=== PATIENT | male | born 1970 | race Caucasian/White ===

== ENCOUNTER 2018-07-24 23:33 | Observation (INO) | payer OTHER ==
[2018-07-24] MEDS ORDERED: NS 1,000 ML IV ONE (23:46)
--- NOTE | 2018-07-24 23:50 | EDPHY ---
H & P Stated Complaint: Abd pain x2 days, Time Seen by Provider: 07/24/18 23:42 HPI/ROS: CHIEF COMPLAINT: Lower abdominal pain x2 days HISTORY OF PRESENT ILLNESS: 47-year-old male generally healthy, no history of abdominal surgeries, complaining of lower abdominal pain and periumbilical pain for the past 2 days. Mild nausea. No vomiting. No appetite . Bowel movements normal. No diarrhea. No constipation. No testicular pain. No fever or chills. No flu-like symptoms. Last oral intake 230 p.m. Today PRIMARY CARE PROVIDER: REVIEW OF SYSTEMS: 10 systems reviewed and negative with the exception of the elements mentioned in the history of present illness PAST MEDICAL & SURGICAL HISTORY: No pertinent medical or surgical history SOCIAL HISTORY: nonsmoker PHYSICAL EXAM (Prior to examination, patient consented to physical exam, hands were washed and my usual and customary physical exam procedures followed) 1) GENERAL: Well-developed, well-nourished, alert and oriented. Appears to be in no acute distress. 2) HEAD: Normocephalic, atraumatic 3) HEENT: Pupils equal, round, reactive to light bilaterally. Sclera anicteric. Nasopharynx, oropharynx, clear, no lesions. Dry mucous membranes. 4) NECK: Full range of motion, no meningeal signs. 5) LUNGS: Clear auscultation bilaterally, no wheezes, no rhonchi, no retractions. 6) HEART: Regular rate and rhythm, no murmur, no heave, no gallop. 7) ABDOMEN: No guarding, tender to palpation right lower quadrant, negative Solano's, negative Rovsing's, negative peritoneal sign, 8) MUSCULOSKELETAL: Moving all extremities, no focal areas of tenderness, no obvious trauma. No peripheral edema or discoloration. 9) BACK: No CVA tenderness, no midline vertebral tenderness, no fluctuance, no step-off, no obvious trauma, no visual or palpable abnormality. 10) SKIN: No rash, no petechiae. 11) Psychiatric: Patient is oriented X 3, there is no agitation. DIFFERENTIAL DIAGNOSIS: My differential diagnosis includes, but is not limited to, acute appendicitis, acute cholecystitis, bowel obstruction, acute pancreatitis, gastritis and urinary tract infection. The patient understands that this diagnosis is provisional and can never be 100% accurate. This is a partial list of diagnoses considered. These considerations are based on history , physical exam, past history and reassessment. - Personal History Current Tetanus Diphtheria and Acellular Pertussis (TDAP): No - Medical/Surgical History Hx Asthma: No Hx Chronic Respiratory Disease: No Hx Diabetes: No Hx Cardiac Disease: No Hx Renal Disease: No Hx Cirrhosis: No Hx Alcoholism: No Hx HIV/AIDS: No Hx Splenectomy or Spleen Trauma: No Other PMH: denies - Social History Smoking Status: Never smoked Constitutional: Initial Vital Signs Temperature (C) 36.7 C 07/24/18 23:37 Heart Rate 75 07/24/18 23:37 Respiratory Rate 17 07/24/18 23:37 Blood Pressure 153/96 H 07/24/18 23:37 O2 Sat (%) 98 07/24/18 23:37 O2 Delivery Mode Room Air Allergies/Adverse Reactions: Penicillins Allergy (Verified 07/24/18 23:39) Home Medications: Medication Instructions Recorded NK [No Known Home Meds] 07/24/18 Medical Decision Making - Diagnostics Imaging Results: Imaging Impressions Abdomen CT 07/25/18 00:02 Impression: Features consistent with acute appendicitis. Findings were discussed with Torri Herrera PA-C at 0:25, on 07/25/2018. Images reviewed myself ED Course/Re-evaluation: 11:49 p.m.: Patient has lower abdominal pain. Will obtain i-STAT creatinine, plan on CT imaging the abdomen and pelvis. He remains NPO since 2:30 p.m. Today. Care of patient under supervision of secondary supervising physician Dr Nelson with whom I discussed case. 12:25 a.m.: Staff Radiology interpretation is positive for appendicitis without perforation. Images reviewed myself 12:30 a.m.: Consultation Dr. Dharmesh Saldivar will plan taking the patient to the operating room. Ceftriaxone and Flagyl will be administered. He has a listed penicillin allergy which he states is from childhood. - Data Points Laboratory Results: Laboratory Results 07/25/18 00:00 07/25/18 07/25/18 07/25/18 00:01 00:00 00:00 WBC 17.73 10^3/uL H 10^3/uL (3.80-9.50) RBC 5.17 10^6/uL 10^6/uL (4.40-6.38) Hgb 16.1 g/dL g/dL (13.7-17.5) POC Hgb 16.7 gm/dL gm/dL (13.7-17.5) Hct 45.8 % % (40.0-51.0) POC Hct 49 % % (40-51) MCV 88.6 fL fL (81.5-99.8) MCH 31.1 pg pg (27.9-34.1) MCHC 35.2 g/dL g/dL (32.4-36.7) RDW 12.6 % % (11.5-15.2) Plt Count 191 10^3/uL 10^3/uL (150-400) MPV 11.3 fL fL (8.7-11.7) Neut % (Auto) 86.6 % H % (39.3-74.2) Lymph % (Auto) 8.9 % L % (15.0-45.0) [place] % (Auto) 3.7 % L % (4.5-13.0) Eos % (Auto) 0.2 % L % (0.6-7.6) Baso % (Auto) 0.2 % L % (0.3-1.7) Nucleat RBC Rel Count 0.0 % % (0.0-0.2) Absolute Neuts (auto) 15.34 10^3/uL H 10^3/uL (1.70-6.50) Absolute Lymphs (auto) 1.58 10^3/uL 10^3/uL (1.00-3.00) Absolute Monos (auto) 0.66 10^3/uL 10^3/uL (0.30-0.80) Absolute Eos (auto) 0.04 10^3/uL 10^3/uL (0.03-0.40) Absolute Basos (auto) 0.04 10^3/uL 10^3/uL (0.02-0.10) Absolute Nucleated RBC 0.00 10^3/uL 10^3/uL (0-0.01) Immature Gran % 0.4 % % (0.0-1.1) Immature Gran # 0.07 10^3/uL 10^3/uL (0.00-0.10) POC Sodium 141 mEq/L mEq/L (135-145) Sodium Pending POC Potassium 3.7 mEq/L mEq/L (3.3-5.0) Potassium Pending POC Chloride 102 mEq/L mEq/L (97-110) Chloride Pending Carbon Dioxide Pending Anion Gap Pending POC BUN 17 mg/dL mg/dL (7-23) BUN Pending Creatinine Pending POC Creatinine 1.0 mg/dL mg/dL (0.7-1.3) Estimated GFR Pending Glucose Pending POC Glucose 131 mg/dL H mg/dL (70-100) Calcium Pending Total Bilirubin Pending Conjugated Bilirubin Pending Unconjugated Bilirubin Pending AST Pending ALT Pending Alkaline Phosphatase Pending Total Protein Pending Albumin Pending Lipase Pending Medications Given: Discontinued Medications Sodium Chloride (Ns) 1,000 mls @ 0 mls/hr IV EDNOW ONE; Wide Open PRN Reason: Protocol Stop: 07/24/18 23:47 Last Admin: 07/24/18 23:53 Dose: 1,000 mls Point of Care Test Results: Chemistry 07/25/18 00:01 POC Sodium 141 mEq/L mEq/L (135-145) POC Potassium 3.7 mEq/L mEq/L (3.3-5.0) POC Chloride 102 mEq/L mEq/L (97-110) POC BUN 17 mg/dL mg/dL (7-23) POC Creatinine 1.0 mg/dL mg/dL (0.7-1.3) POC Glucose 131 mg/dL H mg/dL (70-100) ISTAT H&H 07/25/18 00:01 POC Hgb 16.7 gm/dL gm/dL (13.7-17.5) POC Hct 49 % % (40-51) Departure - Departure Disposition: [facility] Inpatient Acute Clinical Impression: Acute appendicitis Qualifiers: Acute appendicitis type: with localized peritonitis Appendicitis gangrene presence: without gangrene Appendicitis perforation presence: without perforation Appendicitis abscess presence: without abscess Qualified Code(s): K35.30 - Acute appendicitis with localized peritonitis, without perforation or gangrene Condition: Fair Referrals: NONE *PRIMARY CARE P,. [Primary Care Provider] - As per Instructions
[2018-07-25] MEDS ORDERED: IOPAMIDOL (ISOVUE-300) 100 ML BTL ONE (00:03)
[2018-07-25 00:04] LABS: PLATELET COUNT 191 10^3/uL (150-400)
[2018-07-25] MEDS ORDERED: KETOROLAC 15 MG/1 ML SDV IVP ONE (00:58)
[2018-07-25] MEDS ORDERED: MIDAZOLAM 2 MG/2 ML VIAL IVP ONE (01:17)
--- NOTE | 2018-07-25 01:17 | PDANEPAE ---
ANE History of Present Illness Laparoscopic appendectomy ANE Past Medical History - Pulmonary History Hx Oxygen in Use at Home: No - Endocrine History Hx Diabetes: No ANE Review of Systems Review of systems is: negative Review of Systems: - Exercise capacity Exercise capacity: >=4 METS ANE Patient History - Allergies Allergies/Adverse Reactions: Penicillins Allergy (Verified 07/24/18 23:39) - Home Medications Home medications: home medication list seen and reviewed Home Medications: NK [No Known Home Meds] 07/24/18 [Last Taken Unknown] - NPO status NPO Since - Liquids (Date): 07/24/18 NPO Since - Liquids (Time): 20:00 NPO Since - Solids (Date): 07/24/18 NPO Since - Solids (Time): 20:00 - Anes Hx Anes Hx: post operative nausea - Smoking Hx Smoking Status: Never smoked - Family Anes Hx Family Anes Hx: none ANE Labs/Vital Signs - Labs Result Diagrams: 07/25/18 00:00 07/25/18 00:00 - Vital Signs Vital Signs: reviewed preoperatively; see RN documention for details Blood Pressure: 163/100 Heart Rate: 88 Respiratory Rate: 20 O2 Sat (%): 96 Height: 175.26 cm Weight: 86.183 kg ANE Physical Exam - Airway Neck exam: FROM Mallampati Score: Class 1 Mouth exam: normal dental/mouth exam - Pulmonary Pulmonary: no respiratory distress - Cardiovascular Cardiovascular: regular rate and rhythym - ASA Status ASA Status: I, E ANE Anesthesia Plan Anesthesia Plan: general endotracheal anesthesia (RSI)
[2018-07-25] MEDS ORDERED: BUPIVACAINE 0.5% 30 ML SDV ONE (01:21)
[2018-07-25] MEDS ORDERED: ONDANSETRON 4 MG/2 ML VIAL ONE (01:24)
[2018-07-25] MEDS ORDERED: LIDOCAINE 2% 100 MG/5 ML SYR ONE (01:24)
[2018-07-25] MEDS ORDERED: SUGAMMADEX SODIUM 200 MG/2 ML VIAL IVP ONE (01:24)
[2018-07-25] MEDS ORDERED: ROCURONIUM 50 MG/5 ML VIAL ONE (01:24)
[2018-07-25] MEDS ORDERED: DEXAMETHASONE 4 MG/ML VIAL ONE (01:24)
[2018-07-25] MEDS ORDERED: fentaNYL 250 MCG/5 ML INJ ONE (01:24)
[2018-07-25] MEDS ORDERED: PROPOFOL 200 MG/20 ML VIAL ONE (01:25)
[2018-07-25] MEDS ORDERED: MIDAZOLAM 2 MG/2 ML VIAL ONE (01:40)
[2018-07-25] MEDS ORDERED: DEXAMETHASONE 4 MG/ML VIAL IVP PRN (01:49)
[2018-07-25] MEDS ORDERED: fentaNYL 100 MCG/2 ML INJ IVP PRN (01:49)
[2018-07-25] MEDS ORDERED: HYDROmorphONE/DILAUDID 2 MG/ML INJ IVP PRN (01:49)
[2018-07-25] MEDS ORDERED: HYDROCODONE/APAP 5/325 TAB PO PRN (01:49)
[2018-07-25] MEDS ORDERED: ONDANSETRON 4 MG/2 ML VIAL IVP PRN ×2 (01:49→02:47)
[2018-07-25] MEDS ORDERED: PROMETHAZINE HCL 25 MG/ML INJ IVP PRN (01:49)
[2018-07-25] MEDS ORDERED: oxyCODONE IR 5 MG TAB PO PRN (01:49)
[2018-07-25] MEDS ORDERED: LABETALOL HCL 5 MG/ML 20 ML MDV IVP PRN (01:49)
[2018-07-25] MEDS ORDERED: NALOXONE HCL 0.4 MG/ML INJ IVP PRN (01:49)
[2018-07-25] MEDS ORDERED: MEPERIDINE 25 MG/0.5 ML AMP IVP PRN (01:49)
--- NOTE | 2018-07-25 01:49 | POSTANESTH ---
Post Anesthetic Evaluation Cardiovascular Status: Normal, Stable, Similar to Pre-Op Cond Respiratory Status: Normal, Stable, Similar to Pre-op Cond. Level of Consciousness/Mental Status: Can Participate in Eval, Mildly Sleepy, Arousable Pain Control: Adequate, Prn Tx Ordered Nausea/Vomiting Control: Adequate, Prn Tx Ordered Complications Possibly Related to Anesthesia: None Noted
[2018-07-25] MEDS ORDERED: ceFAZolin 1 GM/5 ML SYR ONE (01:54)
[2018-07-25] MEDS ORDERED: HEPARIN 1000 UNIT/1 ML MDV ONE (01:54)
--- NOTE | 2018-07-25 02:42 | PDGENHP ---
History & Physical Chief Complaint: ABD PAIN History of Present Illness: PROGRESSIVE ABD PAIN FOR 18 HRS LOCALIZED TO RLQ. WBC ELEVATED. CT + FOR ACUTE APPE. RISKS AND OPTIONS FULLY DISCUSSED Pertinent Past, Social, Family History: PMH: NEGATIVE, NO SURGERY. MEDS NONE. NKA. ROS -10 PT REVIEW. SOC HX: NONSMOKER, . FAM HX NONCONTRIB Relevant Physical Exam: GEN HEALTHY 47 MALE, AFEBRILE. HEENT NO NODES, NONICTEERIC. CHEST CLEAR. COR RR. ABD SOFT, TENDER RLQ WITH +REBOUND AND GUARDING. GEN OK. EXTREM OK. NEURO SYMMETRIC. PYSCH ALERT, ORIENTED, COOPERATIVE Cardiorespiratory Assessment: IMP: ACUTE APPE. PLAN LAP APPE, RISKS AND OPTIONS FULLY DISCUSSED
--- NOTE | 2018-07-25 02:46 | POSTOPPROG ---
Post Op Note Date of Operation: 07/25/18 Surgeon: Dharmesh Saldivar Anesthesiologist: EVA Anesthesia: GET(General Endotracheal) Pre-op Diagnosis: ACUTE APPE Post-op Diagnosis: SAME Indication: PAIN Procedure: LAP APPE Findings: ACUTE GANGENOUS APPENDIX Inf/Abcess present in the surg proc area at time of surgery?: Yes Depth: Organ Space EBL: 50-100 Complications: 0 Specimen(s): APPENDIX
[2018-07-25] MEDS ORDERED: HYDROmorphONE/DILAUDID 1 MG/ML INJ IVP PRN (02:47)
[2018-07-25] MEDS ORDERED: ONDANSETRON DISINTEGRATING 4 MG TAB PO PRN (02:47)
[2018-07-25] MEDS ORDERED: OXYCODONE/APAP 5/325 TAB PO PRN (02:47)
[2018-07-25] MEDS ORDERED: D5W 1/2 NS W/ 20 KCl/L 1,000 ML IV SCH (03:00)
[2018-07-25] MEDS ORDERED: KETOROLAC 15 MG/1 ML SDV IVP SCH (06:00)
--- NOTE | 2018-07-25 06:17 | GOP ---
DATE OF OPERATION: 07/25/2018 SURGEON: Dharmesh Saldivar MD INTAKE COUNSELOR: There was no assistant county engineer. ANESTHESIA: General endotracheal. ANESTHESIOLOGIST: Dr. Beltran. PREOPERATIVE DIAGNOSIS: Acute appendicitis. POSTOPERATIVE DIAGNOSIS: Acute appendicitis. PROCEDURE PERFORMED: Laparoscopic appendectomy. FINDINGS: Patient was found to have a necrotic appendix, which was adherent to the terminal ileum, b ut not perforated. ESTIMATED BLOOD LOSS: Less than 50 cc. DESCRIPTION OF PROCEDURE: Patient taken to the operating room where he received a satisfactory gener al endotracheal anesthesia by Dr. Beltran. He was placed in the supine position, prepped and draped in the usual sterile fashion. An infraumbilical incision was made. A Veress needle inserted. Pneu moperitoneum was established. A trocar was introduced. Laparoscope introduced. Good visualization was obtained. Two other trocars were placed in the lower abdomen under direct vision. The appendix was identified; it was carefully from the ileum using the Harmonic Scalpel. Hemostasis was obtained with the Harmonic Scalpel and hemoclips, and the mesoappendix was divided until the base of the appendix was exposed. It was then divided with the Endo-PAMELA stapler and placed in a specimen ba g and extracted through the upper midline port site. The wound was irrigated. Hemostasis was assure d. Trocars removed under direct vision. Trocar sites were closed with 0 Vicryl for the fascia, 4-0 Monocryl subcuticular stitch for the skin. All layers infiltrated with % Marcaine. There were no complications. He did have a tedious difficult dissection the appendix from the t erminal ileum. He was taken to the recovery room in good condition. /[id number]/MODL
[2018-07-25 08:24] VITALS: BP 127/84
--- NOTE | 2018-07-25 09:09 | SOAPPROG ---
SOAP Progress Note Assessment/Plan: Assessment: 47 y/o M s/p lap appy POD #1 S: No complaints. Pain controlled. passing gas. O: Alert Afebrile VSS RRR ctab, no increased WOB Abdomen: soft, nontender, nondistended, incision sites cdi Plan: Advance to regular diet. D/c home. 5 day course of Levaquin. 07/25/18 09:07 Objective: Vital Signs Temp Pulse Resp BP Pulse Ox 36.6 C 82 16 127/84 H 94 07/25/18 08:23 07/25/18 08:23 07/25/18 08:23 07/25/18 08:23 07/25/18 08:23 07/24/18 07/25/18 07/26/18 05:59 05:59 05:59 Intake Total 3298 Output Total 5 Balance 3293 ICD10 Worksheet Patient Problems: Problems Problem Status Onset Acute appendicitis Acute
--- NOTE | 2018-07-25 10:34 | GDS ---
DISCHARGE DIAGNOSES: Acute appendicitis. SPECIAL TESTS: Abdominal CT scan. For full details, please see report. CONSULTATIONS: General Surgery, by Dr. Dharmesh Saldivar. PROCEDURES: Laparoscopic appendectomy. INTRAOPERATIVE FINDINGS: The patient was found to have a necrotic appendix, which was adherent to th e terminal ileum, but not perforated. HOSPITAL COURSE: This is a healthy 47-year-old male who presented to the emergency department with r ight lower quadrant pain and periumbilical pain for 2 days prior to admission. He denied nausea and vomiting. An abdominal CT scan revealed findings consistent with acute appendicitis. Dr. Saldivar saw the patient, who recommended surgery. He discussed all risks and options, and the patient wished to proceed with laparoscopic appendectomy. The patient tolerated the procedure well, and there were no complications. The day following surgery, he was tolerating both a clear liquid and regular diet. H e was passing gas, and his pain was under control. He was subsequently discharged home in good condi tion with a prescription for Levaquin for 5 days. He was offered a prescription for oxycodone; [facility], the patient refused. He was advised to take Tylenol or ibuprofen for pain. He was advised to fo llow up in our office in 2 weeks and call with fever, chills, or worsening pain. /[id number]/MODL
== END 2018-07-25 11:21 | disposition home or self-care (01) ==
LOC: EDBD 23:33 → F3E 07-25 03:10
PROVIDERS: ADMIT Surgery; ATTEND Surgery
PROC: 0DTJ4ZZ Resection of Appendix, Percutaneous Endoscopic Approach (ICD-10-PCS; principal; 2018-07-25 01:30)
DX: K35.80 Unspecified acute appendicitis (principal); E86.9 Volume depletion, unspecified; Z88.0 Allergy status to penicillin
CPT/HCPCS: 44970; 74177; 96361; 96365; 96375; 96376; 99285; G0378; 82435-PO; 82565-PO; 82947-PO; 84132-PO; 84295-PO; 84520-PO; 85014-ER; J0696; J1100; J1885; J2001; J2250; J2405; J2704; J3010; Q9967